=== PATIENT | male | born 1985 | race Caucasian/White ===

== ENCOUNTER 2024-03-10 19:08 | Observation (INO) | payer SELFPAY ==
[2024-03-10 19:22] VITALS: BMI 38.2
[2024-03-10] MEDS ORDERED: BACITRACIN ZINC 15 GM TUBE TOPICAL OINTMENT ONE (20:16)
[2024-03-10] MEDS ORDERED: IBUPROFEN 400 MG TABLET (FP) PO ONE (20:16)
[2024-03-10] MEDS: IBUPROFEN 400 MG TABLET (FP) PO ONE (20:18)
[2024-03-10] MEDS: BACITRACIN ZINC 15 GM TUBE TOPICAL OINTMENT TP ONE (20:19)
[2024-03-10] MEDS ORDERED: FLUCONAZOLE 150 MG TABLET PO ONE (21:09)
[2024-03-10 22:17] LABS: BASO % 0.7 % (0-2.0); EOS % 1.6 % (0-4.5); HEMATOCRIT 43.1 % (35.4-49); HEMOGLOBIN 14.6 GM/dL (11.7-16.9); LYMPH % 30.3 % (8-40); MCH 25.8 pg (25.7-33.7); MCHC 33.8 g/dl (32.0-35.9); MEAN CELL VOLUME 76.1 fl (80-96); MEAN PLT VOLUME 10.3 fl (7.5-11.1); MONO % 6.1 % (3.8-10.2); NEUT % 61.3 % (42.8-82.8); PLATELET COUNT 213 10^3/uL (134-434); RBC 5.66 M/mm3 (4.00-5.60); RDW 14.2 % (11.9-15.9); WHITE BLOOD COUNT 10.9 K/mm3 (4.0-10.0)
[2024-03-10 22:18] LABS: PH,URINE 6.5 (5.0-8.0); URINE APPEARANCE CLEAR; URINE BILIRUBIN NEGATIVE (NEGATIVE); URINE COLOR YELLOW; URINE GLUCOSE (UA) 3+ (NEGATIVE); URINE KETONE TRACE (NEGATIVE); URINE LEUK ESTERASE NEGATIVE (NEGATIVE); URINE NITRITE NEGATIVE (NEGATIVE); URINE PROTEIN NEGATIVE (NEGATIVE); URINE UROBILINOGEN 0.2 mg/dL (0.2-1.0)
[2024-03-10 22:21] LABS: VENOUS BASE EXCESS -2.4 mmol/L (-2-2); VENOUS O2 SATURATION 94.4 % (70-80); VENOUS PCO2 36.9 mmHg (38-52); VENOUS PH 7.393 (7.310-7.410)
[2024-03-10 22:44] LABS: CHLORIDE 105 mmol/L (98-107); POTASSIUM 4.5 mmol/L (3.5-5.1); SODIUM 136 mmol/L (136-145)
[2024-03-10 22:46] LABS: ALBUMIN 3.8 g/dl (3.4-5.0); ANION GAP 7 mmol/L (4-13); CALCIUM 9.5 mg/dL (8.5-10.1); CO2 24 mmol/L (21-32)
[2024-03-10 22:47] LABS: BLOOD UREA NITROGEN 15.3 mg/dL (7-18)
[2024-03-10 22:48] LABS: GLUCOSE,RANDOM 416 mg/dL (74-106)
[2024-03-10 22:50] LABS: SGOT/AST 53 U/L (15-37)
[2024-03-10 22:51] LABS: BILIRUBIN,TOTAL 0.4 mg/dL (0.2-1); TOT PROT 7.1 g/dl (6.4-8.2)
[2024-03-10 22:52] LABS: ALK PHOS 118 U/L (45-117)
[2024-03-10 22:54] LABS: SGPT/ALT 94 U/L (13-61)
[2024-03-11] MEDS: CLOTRIMAZOLE/BETAMET DIPROP TOPICAL CREAM 45 GM TUBE TP SCH (00:06)
[2024-03-11] MEDS: FLUCONAZOLE 150 MG TABLET PO ONE (00:06)
[2024-03-11] MEDS: SODIUM CHLORIDE 0.9% 1000 ML INFUS.BAG IV ONE (00:06)
[2024-03-11] MEDS: LACTATED RINGERS SOLUTION 1000 ML INFUS.BAG IV ONE (00:07)
[2024-03-11] MEDS: CLOTRIMAZOLE 1% CREAM TP SCH ×2 (00:07→01:24)
[2024-03-11] MEDS: INSULIN REGULAR HUMAN 100 UNITS/ML *VIAL SQ ONE (00:07)
[2024-03-11] MEDS ORDERED: FLUCONAZOLE 150 MG TABLET PO ONE (00:08)
[2024-03-11] MEDS ORDERED: ACETAMINOPHEN 325 MG TABLET (FP) PO PRN (00:09)
[2024-03-11] MEDS ORDERED: INSULIN REGULAR HUMAN 100 UNITS/ML *VIAL ONE (00:09)
[2024-03-11 01:53] VITALS: RESP 18
[2024-03-11] MEDS: INSULIN (LEVEMIR) 100 UNITS/ML UNITS SQ ONE (01:57)
[2024-03-11] MEDS: INSULIN (NOVOLOG) ASPART 100 UNITS/ML 10ML VIAL SQ SCH (06:31)
[2024-03-11] MEDS: HEPARIN NA (PORCINE) 5,000 UNITS/ML 1ML VIAL SQ SCH (06:31)
[2024-03-11] MEDS: INSULIN ASPART SLIDING SCALE (NOVOLOG) 1 VIAL SQ SCH (06:32)
[2024-03-11 08:12] LABS: HEMATOCRIT 41.6 % (35.4-49); MCHC 33.7 g/dl (32.0-35.9); MEAN CELL VOLUME 77.1 fl (80-96); MEAN PLT VOLUME 10.7 fl (7.5-11.1); PLATELET COUNT 205 10^3/uL (134-434); WHITE BLOOD COUNT 11.3 K/mm3 (4.0-10.0)
[2024-03-11 08:30] LABS: POTASSIUM 4.3 mmol/L (3.5-5.1)
[2024-03-11 08:45] LABS: ALBUMIN 3.5 g/dl (3.4-5.0); BILIRUBIN,TOTAL 0.5 mg/dL (0.2-1); CREATININE 1.1 mg/dL (0.55-1.3); PHOSPHOROUS 4.2 mg/dL (2.5-4.9)
[2024-03-11 08:47] LABS: CALCIUM 8.7 mg/dL (8.5-10.1)
[2024-03-11 08:48] LABS: MAGNESIUM 1.9 mg/dL (1.8-2.4)
[2024-03-11 09:01] LABS: BLOOD UREA NITROGEN 14.8 mg/dL (7-18); TOT PROT 6.5 g/dl (6.4-8.2)
[2024-03-11] MEDS ORDERED: ENOXAPARIN NA (PORCINE) 40 MG/0.4 ML DISP.SYRIN SQ SCH (10:00)
[2024-03-11 12:07] LABS: HIV INTERPRETATION NEGATIVE (NEGATIVE)
[2024-03-11 15:46] VITALS: BP 146/90; PULSE 80; TEMP 98.6
[2024-03-11] MEDS: ACETAMINOPHEN 1000 MG/100 ML BAG IVPB ONE (18:26)
[2024-03-11] MEDS ORDERED: INSULIN (LEVEMIR) 100 UNITS/ML UNITS SQ SCH (22:00)
== END 2024-03-11 18:30 | disposition home or self-care (01) ==
LOC: JER 19:08 → JERFT 19:08 → JERBED 23:12 → J7W 03-11 01:11
PROVIDERS: ADMIT Internal Medicine; ATTEND Nurse Practitioner Family
PROC: 3E013VG Introduction of Insulin into Subcutaneous Tissue, Percutaneous Approach (ICD-10-PCS; principal; 2024-03-10)
PROC: 3E0337Z Introduction of Electrolytic and Water Balance Substance into Peripheral Vein, Percutaneous Approach (ICD-10-PCS; 2024-03-10)
PROC: 3E023GC Introduction of Other Therapeutic Substance into Muscle, Percutaneous Approach (ICD-10-PCS; 2024-03-10)
DX: N48.1 Balanitis (principal); E11.65 Type 2 diabetes mellitus with hyperglycemia; Z90.49 Acquired absence of other specified parts of digestive tract; I10 Essential (primary) hypertension; F17.210 Nicotine dependence, cigarettes, uncomplicated; Z29.89 Encounter for other specified prophylactic measures
CPT/HCPCS: 36415; 80053; 81003; 82803; 82962; 83036; 83735; 84100; 85025; 85027; 87086; 87389; 87491; 87591; 87661; 93005; 93010; 99285-25; G0378; J1644

== ENCOUNTER 2024-10-06 21:46 | Emergency (ER) | payer OTHER ==
[2024-10-06 21:55] VITALS: RESP 18; BMI 39.1
[2024-10-06] MEDS ORDERED: ACETAMINOPHEN INJECTION 100 ML ONE (22:24)
[2024-10-06] MEDS ORDERED: DEXAMETHASONE SOD PHOSPHATE 10 MG/1 ML VIAL ONE (22:24)
[2024-10-06] MEDS ORDERED: RACEPINEPHRINE IH SOL 2.25% 11.25 MG/0.5 ML VIAL NEB ONE (22:24)
[2024-10-06] MEDS: ACETAMINOPHEN 1000 MG/100 ML BAG IVPB ONE (22:45)
[2024-10-06] MEDS: RACEPINEPHRINE IH SOL 2.25% 11.25 MG/0.5 ML VIAL IH ONE (22:45)
[2024-10-06] MEDS: SODIUM CHLORIDE 0.9% 500 ML INFUS.BAG IV ONE (22:46)
[2024-10-06] MEDS: DEXAMETHASONE SOD PHOSPHATE 10 MG/1 ML VIAL IVPUSH ONE (22:50)
[2024-10-06 22:54] LABS: VENOUS BASE EXCESS -2.9 mmol/L (-2-2); VENOUS O2 SATURATION 84.8 % (70-80); VENOUS PCO2 35.8 mmHg (38-52); VENOUS PH 7.393 (7.310-7.410)
[2024-10-06 22:55] LABS: ABSOLUTE IMMATURE GRANULOCYTES 0.08 x10^3/uL (0.0-0.031); BASOPHILS # 0.03 x10^3/uL (0.01-0.08); EOSINOPHIL % 0.2 % (0.8-7.0); EOSINOPHILS # 0.03 x10^3/uL (0.04-0.54); HEMATOCRIT 42.4 % (40.1-51.0); HEMOGLOBIN 13.6 g/dL (13.7-17.5); MCHC 32.1 g/dl (32.3-36.5); MEAN CELL VOLUME 76.4 fl (79.0-92.2); MEAN PLT VOLUME 11.5 fl (9.4-12.4); MONOCYTE # 0.76 x10^3/uL (0.30-0.82); MONOCYTE % 5.4 % (5.3-12.2); PLATELET COUNT 211 x10^3/uL (163-337); RDW 13.9 % (12.0-15.6)
[2024-10-06 23:13] LABS: POTASSIUM 3.8 mmol/L (3.5-5.1)
[2024-10-06 23:15] LABS: CALCIUM 9.7 mg/dL (8.5-10.1)
[2024-10-06 23:16] LABS: ALBUMIN 3.6 g/dl (3.4-5.0)
[2024-10-06 23:19] LABS: CREATININE 0.7 mg/dL (0.55-1.3)
[2024-10-06 23:20] LABS: BILIRUBIN,TOTAL 0.3 mg/dL (0.2-1); PROTHROMBIN TIME (PATIENT) 10.9 SEC (9.7-13.0)
[2024-10-06 23:21] LABS: TOT PROT 7.3 g/dl (6.4-8.2)
[2024-10-06 23:23] LABS: ACTIVATED PTT 26.3 SECONDS (25.2-36.5)
[2024-10-06] MEDS: CLINDAMYCIN IVPB 300 MG in DEXTROSE 5%-WATER - 48 ML IVPB ONE (23:49)
[2024-10-06] MEDS ORDERED: CLINDAMYCIN 600MG PREMIX IVPB 600 MG/50 ML BAG IVPB ONE (23:53)
[2024-10-07] MEDS: CLINDAMYCIN 600MG PREMIX IVPB 600 MG/50 ML BAG IVPB ONE (00:02)
[2024-10-07 00:56] VITALS: BP 137/87; PULSE 95; TEMP 98.8
== END 2024-10-07 00:59 | disposition home or self-care (01) ==
LOC: JER 21:46
PROC: 3E03329 Introduction of Other Anti-infective into Peripheral Vein, Percutaneous Approach (ICD-10-PCS; principal; 2024-10-06)
PROC: 3E033NZ Introduction of Analgesics, Hypnotics, Sedatives into Peripheral Vein, Percutaneous Approach (ICD-10-PCS; 2024-10-06)
PROC: 3E033GC Introduction of Other Therapeutic Substance into Peripheral Vein, Percutaneous Approach (ICD-10-PCS; 2024-10-06)
DX: J10.1 Influenza due to other identified influenza virus with other respiratory manifestations (principal); J04.0 Acute laryngitis; M79.10 Myalgia, unspecified site
CPT/HCPCS: 0241U-QW; 36415; 70491-TC; 71046-TC-FY; 80053; 82803; 83605; 84484; 85025; 85610; 85730; 86850; 86900; 86901; 87040; 87651; 93005; 93010; 99285-25; J0131; J1100; Q9967